=== PATIENT | female | born 1960 | race Caucasian/White ===

== ENCOUNTER → 2016-07-15 | Outpatient (CLI) | payer MEDICARE, OTHER ==
[~2016-07-15] MED LIST: AMAN100C18 PO; AMIT75TA2 PO; ASCO10006 PO; AZAT50TA PO; CALC-463 PO; CHOL200014 PO; DOCU-34 PO; FLUO40CA12 PO; FOLI0.4T2 PO; GBPN300C PO; GBPN600T PO; HYDR-3811 PO; MICO30CR17 TP; MULT-351 PO
== END ==
LOC: EMS 15:00
PROVIDERS: ATTEND Family Medicine
DX: R10.84 Generalized abdominal pain (principal)